=== PATIENT | male | born 1975 | race Caucasian/White ===

== ENCOUNTER 2023-01-11 10:13 | Day surgery (SDC) | payer OTHER ==
[~2023-01-11] VITALS: Ht 177.8 cm; Wt 99.3 kg
[2023-01-11] MEDS ORDERED: fentaNYL citrate 0.05 MG/ML VIAL ONE (10:41)
[2023-01-11] MEDS ORDERED: diphenhydrAMINE 50 MG/ML VIAL ONE (10:41)
[2023-01-11] MEDS ORDERED: MIDAZOLAM 2 MG/2 ML VIAL ONE ×2 (10:41)
[2023-01-11] MEDS ORDERED: LIDOCAINE 2% 100 MG/5 ML UJET TP ONE (10:42)
[2023-01-11] MEDS ORDERED: MIDAZOLAM 2 MG/2 ML VIAL IVP ONE (14:50)
[2023-01-11] MEDS ORDERED: fentaNYL citrate 0.05 MG/ML VIAL IVP ONE (14:50)
[2023-01-11] MEDS ORDERED: diphenhydrAMINE 50 MG/ML VIAL IVP ONE (14:50)
== END 2023-01-11 12:04 | disposition home or self-care (01) ==
LOC: MDS 10:13 → MMU 10:14 → MDS 12:04
PROVIDERS: ATTEND Internal Medicine Gastroenterology
DX: Z12.11 Encounter for screening for malignant neoplasm of colon (principal); D12.2 Benign neoplasm of ascending colon; D12.3 Benign neoplasm of transverse colon; D12.5 Benign neoplasm of sigmoid colon; I10 Essential (primary) hypertension; E11.9 Type 2 diabetes mellitus without complications; Z80.0 Family history of malignant neoplasm of digestive organs; E78.00 Pure hypercholesterolemia, unspecified; Z88.0 Allergy status to penicillin; Z79.84 Long term (current) use of oral hypoglycemic drugs; Z79.899 Other long term (current) drug therapy
CPT/HCPCS: 45385; 87426; 88305; J1200; J2250; J3010